=== PATIENT | male | born 1990 | race Caucasian/White ===

== ENCOUNTER 2023-02-01 08:37 | Outpatient (CLI) | payer OTHER ==
[~2023-02-01] VITALS: Ht 177.8 cm; Wt 90.7 kg
[2023-02-01] MEDS ORDERED: albuterol 2.5 MG/3 ML nebule NEB PRN (09:10)
[2023-02-01 09:22] VITALS: PULSE 56; RESP 14; O2SAT 97
== END 2023-02-01 23:59 | disposition home or self-care (01) ==
LOC: RT 08:37
PROVIDERS: ATTEND Chiropractor
DX: J45.909 Unspecified asthma, uncomplicated (principal)
CPT/HCPCS: 94060; 94760